=== PATIENT | female | born 1990 | race Caucasian/White ===

== ENCOUNTER 2016-11-24 08:36 | Emergency (ER) | payer OTHER ==
[~2016-11-24] VITALS: Ht 170.2 cm; Wt 58.1 kg
[2016-11-24 08:46] VITALS: BP 113/67
== END 2016-11-24 11:14 | disposition home or self-care (01) ==
LOC: EDAGE 08:36 → ER 08:36
DX: O34.81 Maternal care for other abnormalities of pelvic organs, first trimester (principal); S16.1XXA Strain of muscle, fascia and tendon at neck level, initial encounter; Z3A.08 8 weeks gestation of pregnancy; V43.62XA Car passenger injured in collision with other type car in traffic accident, initial encounter; Y93.89 Activity, other specified; Y92.89 Other specified places as the place of occurrence of the external cause; Y99.8 Other external cause status
CPT/HCPCS: 76801; 76817